=== PATIENT | female | born 1980 | race Hispanic/Latino ===

== ENCOUNTER 2018-08-29 09:03 | Emergency (ER) | payer SELFPAY ==
[~2018-08-29] VITALS: Ht 160 cm; Wt 64.0 kg
[~2018-08-29 09:03] MED LIST: DILANTIN100 MG PO; FERROUS SULF325 M3 PO; VENTOLIN HFA IN
[2018-08-29 09:41] LABS: ANION GAP 12 (6-22 (CALC)); BUN 9 mg/dL (7-17); BUN/CREATININE RATIO 15 (12-20 (CALC)); CARBON DIOXIDE 27 mmol/l (22-30); CHLORIDE 106 mmol/l (95-108); CREATININE 0.6 mg/dL (0.5-1.0); GFR > 60 ML/MIN (>=60 (CALC)); GFR FOR AFR.AMER. > 60 ML/MIN (>=60 (CALC)); POTASSIUM 3.9 mmol/l (3.5-5.1); SODIUM 141 mmol/l (137-146)
[2018-08-29 09:52] LABS: HEMATOCRIT 28.6 % (37.0-47.0); HEMOGLOBIN 8.1 g/dl (12.0-16.0); IMMATURE GRANULOCYTES 0.4 % (0.0-5.0); MEAN CELL VOLUME 62.2 fL CALC (80.0-100.0); MEAN CORPUSCULAR HGB 17.6 pG CALC (26.0-32.0); MEAN CORPUSCULAR HGB CONC 28.3 g/L CALC (32.0-36.0); NEUT# 4.48 thou/uL (2.00-7.15); RED BLOOD COUNT 4.6 mill/uL (4.20-5.60); RED CELL DISTRI WIDTH 18.8 % (11.5-15.5)
[2018-08-29] MEDS ORDERED: DILANTIN100 MG PO ×2 (09:57→13:44)
[2018-08-29 10:16] LABS: URINE BILIRUBIN - DIPSTICK NEGATIVE (NEGATIVE); URINE BLOOD DIPSTICK NEGATIVE (NEGATIVE); URINE COLOR YELLOW; URINE GLUCOSE - DIPSTICK NEGATIVE (NEGATIVE); URINE KETONE NEGATIVE (NEGATIVE); URINE NITRITE - DIPSTICK NEGATIVE (Negative); URINE PH 6.5 (4.5-8.0); URINE PROTEIN - DIPSTICK NEGATIVE (NEG-TRACE); URINE SPECIFIC GRAVITY <=1.005; URINE UROBILINOGEN - DIPSTICK 0.2 E.U./dL (0.2)
[2018-08-29 10:17] LABS: URINE CLARITY SL CLOUDY; URINE LEUK ESTERASE SMALL (NEGATIVE)
[2018-08-29 10:19] LABS: URINE BACTERIA FEW hpf; URINE EPITHELIAL CELLS MODERATE EPI/hpf (0-FEW); URINE WBC 0-2 WBC/hpf (0-5)
[2018-08-29 12:55] VITALS: BP 106/60
[2018-08-29] MEDS ORDERED: PROAIR HFA108 MCG/AC PO (13:44)
== END 2018-08-29 13:58 | disposition home or self-care (01) | DRG 312 ==
LOC: ED 09:03
PROVIDERS: Family Medicine
DX: R55 Syncope and collapse (principal); M79.622 Pain in left upper arm; R07.9 Chest pain, unspecified; S40.022A Contusion of left upper arm, initial encounter; B96.20 Unspecified Escherichia coli [E. coli] as the cause of diseases classified elsewhere; Y04.8XXA Assault by other bodily force, initial encounter; Y93.9 Activity, unspecified; Y92.009 Unspecified place in unspecified non-institutional (private) residence as the place of occurrence of the external cause
CPT/HCPCS: J1610; Q9967